=== PATIENT | male | born 1965 | race Caucasian/White ===

== ENCOUNTER → 2016-07-04 | Outpatient (CLI) | payer BC ==
[2016-07-04 12:14] LABS: CHLORIDE,CL 110 mmol/L (98-110); SODIUM,NA 140 mmol/L (136-146)
== END ==
LOC: MW.CHORTHO 11:25
PROVIDERS: ATTEND Physician Assistant
DX: Z51.81 Encounter for therapeutic drug level monitoring (principal); Z79.1 Long term (current) use of non-steroidal anti-inflammatories (NSAID)
CPT/HCPCS: 36415; 80048

== ENCOUNTER 2016-09-30 18:23 | Emergency (ER) | payer BC ==
--- NOTE | 2016-09-30 18:57 | EDM.PDOC ---
ED HPI GENERAL MEDICAL PROBLEM - General Chief Complaint: Lower Extremity Injury/Pain Stated Complaint: PT HAS INFECTION ON RT LEG Time Seen by Provider: 09/30/16 18:25 Source of Information: Reports: Patient History Limitations: Reports: No Limitations - History of Present Illness INITIAL COMMENTS - FREE TEXT/NARRATIVE: History of present illness: As 51-year-old male comes in complaining of pain to the right knee. Patient indicates that he had drained 40 mL of fluid off of it yesterday it is swollen and painful again today Review of systems: As per history of present illness and below otherwise all systems reviewed and negative. Past medical history: As per history of present illness and as reviewed below otherwise noncontributory. Surgical history: As per history of present illness and as reviewed below otherwise noncontributory. Social history: No reported history of drug or alcohol abuse. Family history: As per history of present illness and as reviewed below otherwise noncontributory. Physical exam: HEENT: Atraumatic, normocephalic, pupils reactive, negative for conjunctival pallor or scleral icterus, mucous membranes moist, throat clear, neck supple, nontender, trachea midline. Lungs: Clear to auscultation, breath sounds equal bilaterally, chest nontender. Heart: S1S2, regular, negative for clicks, rubs, or JVD. Abdomen: Soft, nondistended, nontender. Negative for masses or hepatosplenomegaly. Negative for costovertebral tenderness. Pelvis: Stable nontender. Genitourinary: Deferred. Rectal: Deferred. Extremities: Right leg swollen with a with a swollen ballotable patella, negative for cords or calf pain. Neurovascular unremarkable. Neuro: Awake, alert, oriented. Cranial nerves II through XII unremarkable. Cerebellum unremarkable. Motor and sensory unremarkable throughout. Exam nonfocal. Of note patient is able to bend leg fully and bear weight denies any difficulty with either. Patient indicates that yesterday he and his drained 40 mL of clear yellow fluid off his knee and now it is back and swollen and somewhat painful. Dr. Ni drain 27.5 mils from the patient's right knee please see her procedure note. Diagnostics: [CBC, CMP, x-ray of right knee] Therapeutics: [] Impression: [Prepatellar bursitis/cellulitis] Plan: [Antibiotics follow-up with or without] Definitive disposition and diagnosis as appropriate pending reevaluation and review of above. right knee; right leg Pain Score (Numeric/FACES): 2 - Related Data Allergies Allergy/AdvReac Type Severity Reaction Status Date / Time celecoxib [From Celebrex] Allergy Stomach Verified 09/30/16 18:37 Upset Home Meds: Home Meds Ascorbic Acid [Vitamin C] 500 mg PO DAILY 08/18/14 [History] Gluc 2KCl/Chondr/Andria Hy/Hy Ac [Glucosamine & Chondroitin Cap] 1 tab PO DAILY [History] Magnesium 200 mg PO DAILY 08/18/14 [History] Multivitamin [Multivitamins] 1 tab PO DAILY 08/18/14 [History] [place]-3 Fatty Acids [Charlotte-3] 1,200 mg PO DAILY 08/18/14 [History] Omeprazole Magnesium [Prilosec Otc] 20 mg PO BID 08/18/14 [History] Acetaminophen/HYDROcodone [[place] 325-5 MG] 1 - 2 tab PO Q4H PRN #60 tablet 08/20 [Rx] Past Medical History - Past Health History Medical/Surgical History: Denies Medical/Surgical History HEENT History: Reports: Impaired Vision Other HEENT History: wears glasses Musculoskeletal History: Reports: Arthritis Social & Family History - Family History Family Medical History: Noncontributory - Tobacco Use Smoking Status *Q: Never Smoker - Alcohol Use Days Per Week of Alcohol Use: 1 - Recreational Drug Use Recreational Drug Use: No Drug Use in Last 12 Months: No Review of Systems - Review of Systems Review Of Systems: See Below (History of present illness) ED EXAM, GENERAL - Physical Exam Exam: See Below (See history of present illness) Course - Vital Signs Last Recorded V/S: Last Vital Signs Temp 36.8 C 09/30/16 19:31 Pulse 68 09/30/16 19:31 Resp 18 09/30/16 19:31 BP 130/82 09/30/16 19:31 Pulse Ox 96 09/30/16 19:31 - Orders/Labs/Meds Orders: Active Orders 24 hr Category Date Time Status Knee 3V Rt [CR] Stat Exams 09/30/16 18:56 Taken CMP [COMPREHENSIVE METABOLIC PN,CMP] [CHEM] Stat Lab 09/30/16 19:36 Received CULTURE BLOOD [BC] Stat Lab 09/30/16 19:20 Received CULTURE BLOOD [BC] Stat Lab 09/30/16 19:36 Received Sodium Chloride 0.9% [Saline Flush] Med 09/30/16 19:11 Active 10 ml FLUSH ASDIRECTED PRN Sodium Chloride 0.9% [Saline Flush] Med 09/30/16 19:11 Active 2.5 ml FLUSH ASDIRECTED PRN Blood Culture x2 Reflex Set [OM.PC] Stat Oth 09/30/16 19:11 Ordered Saline Lock Insert [OM.PC] Stat Ot 09/30/16 19:11 Ordered Medication Orders Sodium Chloride (Saline Flush) 10 ml FLUSH ASDIRECTED PRN PRN Reason: Keep Vein Open Sodium Chloride (Saline Flush) 2.5 ml FLUSH ASDIRECTED PRN PRN Reason: Keep Vein Open Labs: Laboratory Tests 09/30/16 09/30/16 Range/Units 19:36 19:36 WBC 7.02 (4.0-11.0) K/uL RBC 4.24 L (4.50-5.90) M/uL Hgb 13.3 (13.0-17.0) g/dL Hct 38.7 (38.0-50.0) % MCV 91.3 (80.0-98.0) fL MCH 31.4 (27.0-32.0) pg MCHC 34.4 (31.0-37.0) g/dL RDW Std Deviation 45.1 (28.0-62.0) fl RDW Coeff of Sho 14 (11.0-15.0) % Plt Count 196 (150-400) K/uL MPV 9.90 (7.40-12.00) fL Neut % (Auto) 59.1 (48.0-80.0) % Lymph % (Auto) 28.2 (16.0-40.0) % [place] % (Auto) 9.7 (0.0-15.0) % Eos % (Auto) 2.6 (0.0-7.0) % Baso % (Auto) 0.4 (0.0-1.5) % Neut # (Auto) 4.2 (1.4-5.7) K/uL Lymph # (Auto) 2.0 (0.6-2.4) K/uL [place] # (Auto) 0.7 (0.0-0.8) K/uL Eos # (Auto) 0.2 (0.0-0.7) K/uL Baso # (Auto) 0.0 (0.0-0.1) K/uL Nucleated RBC % 0.0 /100WBC Nucleated RBCs # 0 K/uL Lactate 0.8 (0.20-2.00) mmol/L Meds: Medications Generic Name Dose Route Start Last Admin Trade Name Freq PRN Reason Stop Dose Admin Sodium Chloride 10 ml 09/30/16 19:11 Saline Flush FLUSH ASDIRECTED PRN Keep Vein Open Sodium Chloride 2.5 ml 09/30/16 19:11 Saline Flush FLUSH ASDIRECTED PRN Keep Vein Open Discontinued Medications Generic Name Dose Route Start Last Admin Trade Name Freq PRN Reason Stop Dose Admin Ketorolac Tromethamine 30 mg 09/30/16 19:12 09/30/16 19:30 Toradol IVPUSH 09/30/16 19:13 30 mg ONETIME ONE Administration Departure - Departure Time of Disposition: 21:18 Disposition: Home, Self-Care 01 Condition: Good Clinical Impression: Patellar bursitis of right knee, Cellulitis - Discharge Information Forms: ED Department Discharge Additional Instructions: The following information is given to patients seen in the emergency department who are being discharged to home. This information is to outline your options for follow-up care. We provide all patients seen in our emergency department with a follow-up referral. The need for follow-up, as well as the timing and circumstances, are variable depending upon the specifics of your emergency department visit. If you don't have a primary care physician on staff, we will provide you with a referral. We always advise you to contact your personal physician following an emergency department visit to inform them of the circumstance of the visit and for follow-up with them and/or the need for any referrals to a consulting specialist. The emergency department will also refer you to a specialist when appropriate. This referral assures that you have the opportunity for follow-up care with a specialist. All of these measure are taken in an effort to provide you with optimal care, which includes your follow-up. Under all circumstances we always encourage you to contact your private physician who remains a resource for coordinating your care. When calling for follow-up care, please make the office aware that this follow-up is from your recent emergency room visit. If for any reason you are refused follow-up, please contact the [facility] Emergency Department at and asked to speak to the emergency department charge nurse. Keep leg elevated as much as possible Take medication as directed Follow-up with primary care in 1-2 days Follow up with Ortho as instructed [facility] [address] [place] [id number] [facility] Professional [facility] [address] [place] [address], [address] [place] [address] - My Orders Last 24 Hours: My Active Orders 09/30/16 18:56 Knee 3V Rt [CR] Stat 09/30/16 19:36 CMP [COMPREHENSIVE METABOLIC PN,CMP] [CHEM] Stat - Assessment/Plan Last 24 Hours: My Active Orders 09/30/16 18:56 Knee 3V Rt [CR] Stat 09/30/16 19:36 CMP [COMPREHENSIVE METABOLIC PN,CMP] [CHEM] Stat
[2016-09-30] MEDS ORDERED: Sodium Chloride 0.9% 10 ML Syringe FLUSH PRN (19:11)
[2016-09-30] MEDS ORDERED: Sodium Chloride 0.9% 2.5 ML Syringe FLUSH PRN (19:11)
[2016-09-30] MEDS ORDERED: Ketorolac 30 MG/ML SDV IVPUSH ONE (19:12)
--- NOTE | 2016-09-30 20:01 | PCM.SN ---
- Free Text/Narrative Note: This is Dr. Ni dictating an addendum note as a supervising physician on this case. I agree with history and physical as above and according to my independent evaluation of this patient he does not perform work on a regular basis on his hands and knees but yesterday he was working in his boat cleaning it and was on his hands and knees and may have triggered the swelling due to that. The patient denies any systemic complaints and he denies any bony complaints to the knee. As documented in the nurse practitioner's note the patient and did attempt to withdraw fluid from the knee and states that they went just below the kneecap and line and were able to get 35-40 mL of fluid. After doing that procedure at home they did notice that the area became more swollen and more pinkish red in color as well as warm. The patient also states that since yesterday he has noticed more swelling distally in his legs but has no neurovascular changes in the leg. Labs and x-ray were performed and reviewed by me. A CRP and sedimentation rate was added to the labs. 2012: Case was discussed with orthopedics at [facility], Dr. Love. He agrees that this is likely not a septic joint but a prepatellar bursitis that has become infected due to the patient's manipulation. He recommends that I superficially tap the fluid in the prepatellar bursa and send that for study and give the patient 1 dose of vancomycin and send him home on Bactrim. As the patient is able to bend the knee and weight-bear he felt the likelihood of septic joint is low. The patient is aware of this conversation as is his and will proceed to consent him for a fluid tap of this bursa. Procedure note: After the patient was consented for the procedure and risk and benefits were discussed a timeout was taken. The area was surgically scrubbed and prepped with Betadine and alcohol and draped in sterile fashion. 1% lidocaine with epinephrine was infused in the skin in the prepatellar area and an 18-gauge needle was utilized to superficially access the pre-patella bursa. Yellow clear fluid was obtained for total of 27.5 mL. There were no complications and the joint space was not at all dilated. A dressing was applied and an Marcelino was placed. The patient tolerated the procedure well. He is currently finishing his vancomycin. I sent the body fluid for cell count and differential, Gram stain and culture, and crystals. I will follow-up those results as they become available but will not hold the patient for those results as the care plan will not change. The patient was advised to leave the Marcelino bandage on for the next 1-2 hours and then remove prior to going to sleep. I've advised him to try to rest the leg and not stress the knee. He will be given a prescription for Bactrim DS and has been strictly advised that if he cannot weight-bear he is unable to bend his knee he has a fever or the area that has been marked on his leg redness expands or the fluid re-accumulates he needs to return for rapid reevaluation in the ED. He will be given information to follow-up with our orthopedics clinic. Diagnosis: Right prepatellar bursitis with cellulitis.
[2016-09-30 20:10] LABS: CHLORIDE,CL 110 mmol/L (98-110); SODIUM,NA 138 mmol/L (136-146)
[2016-09-30] MEDS ORDERED: Lidocaine 1% with EPINEPHrine 1:100,000 20 ML MDV INJECT ONE (20:22)
[2016-09-30 21:45] VITALS: BP 96/58
--- NOTE | 2016-10-03 09:55 | CR ---
EXAM DATE: 09/30/16 PATIENT'S AGE: 51 Patient: AMAURI DEVRIES Facility: [place], [place] Site . Site : [id number] Study: XRay Knee Right [id number] 7:53:10 PM Ordering Physician: Doctor Max Final Report: Indication: Pain and swelling for 3 days. No known injury. Technique: Right knee three views. Comparison: June 24, 2014. Findings: No acute fracture or dislocation. Mild to moderate tricompartmental degenerative changes most pronounced in the medial compartment have slightly progressed. No additional osseous abnormality. Question prepatellar soft tissue swelling. Impression: No acute osseous abnormality. Mild to moderate degenerative changes most pronounced in the medial compartment. Question prepatellar soft tissue swelling. Dictated by Shaggy Paula MD @ 09/30/2016 8:00:46 PM Dictated by: Shaggy Paula MD @ 09/30/2016 20:01:09 (Electronic Signature) Report Signed by Proxy. THELMA
== END 2016-09-30 21:39 | disposition home or self-care (01) ==
LOC: MW.ED 18:23
DX: M70.41 Prepatellar bursitis, right knee (principal); L03.115 Cellulitis of right lower limb; M19.90 Unspecified osteoarthritis, unspecified site; Z79.899 Other long term (current) drug therapy; Z88.8 Allergy status to other drugs, medicaments and biological substances; Y93.89 Activity, other specified
CPT/HCPCS: 20610; 36415; 73562; 80053; 83605; 85025; 85652; 86140; 87040; 87070; 87205; 89050; 89060; 96365; 96375; 99284; J1885; J3370; J7050; 99282

== ENCOUNTER 2021-04-06 07:04 | Emergency (ER) | payer BC ==
[2021-04-06] MEDS ORDERED: Ondansetron 4 MG/2 ML SDV IVPUSH ONE (07:34)
[2021-04-06] MEDS ORDERED: fentaNYL 50 MCG/ML SDV IVPUSH ONE (07:34)
[2021-04-06] MEDS ORDERED: Ketorolac 30 MG/ML SDV IVPUSH ONE (07:34)
[2021-04-06] MEDS ORDERED: fentaNYL 100 MCG/2 ML SDV ONE (08:30)
[2021-04-06 09:30] LABS: BLOOD UREA NITROGEN,BUN 21 mg/dL (7.0-18.0); CARBON DIOXIDE,CO2 23.1 mmol/L (21.0-32.0); CHLORIDE,CL 103 mmol/L (98-107); GLUCOSE RANDOM 133 mg/dL (74-106); POTASSIUM,K 3.8 mmol/L (3.5-5.1); SODIUM,NA 138 mmol/L (136-148)
[2021-04-06 10:01] VITALS: BP 126/76; PULSE 67
== END 2021-04-06 10:00 | disposition home or self-care (01) ==
LOC: MW.ED 07:04
DX: S82.852A Displaced trimalleolar fracture of left lower leg, initial encounter for closed fracture (principal); Z88.8 Allergy status to other drugs, medicaments and biological substances; Z79.899 Other long term (current) drug therapy; W00.9XXA Unspecified fall due to ice and snow, initial encounter
CPT/HCPCS: 27818; 36415; 73600; 73610; 80048; 85025; 96374; 96375; 99284; J1885; J2405; J3010

== ENCOUNTER 2021-04-14 11:04 | Day surgery (SDC) | payer OTHER, BC ==
[~2021-04-14 11:04] MED LIST: Lactated Ringers 1,000 ML IV SCH; ceFAZolin 2 GM in Premix Bag 1 BAG IV SCH
[2021-04-14] MEDS ORDERED: fentaNYL 100 MCG/2 ML SDV IVPUSH PRN (12:05)
[2021-04-14] MEDS ORDERED: Ondansetron 4 MG/2 ML SDV IVPUSH PRN (12:05)
[2021-04-14] MEDS ORDERED: Naloxone 0.4 MG/ML SDV IVPUSH PRN (12:05)
[2021-04-14] MEDS ORDERED: HYDROmorphone 1 MG/ML Syringe IVPUSH PRN (12:05)
[2021-04-14] MEDS ORDERED: Albuterol 0.083% 2.5 MG/3 ML Neb Soln NEB PRN (12:05)
[2021-04-14] MEDS ORDERED: Metoclopramide 10 MG/2 ML SDV IVPUSH PRN (12:05)
[2021-04-14] MEDS ORDERED: Ropivacaine 0.5% 5 MG/ML 30 ML SDV ONE (12:12)
[2021-04-14] MEDS ORDERED: Midazolam 1 MG/ML 2 ML SDV ONE (12:50)
[2021-04-14] MEDS ORDERED: fentaNYL 100 MCG/2 ML SDV ONE ×2 (12:50→16:45)
[2021-04-14] MEDS ORDERED: Bupivacaine 25%/EPINEPHrine/PF 30 ML ONE (13:41)
[2021-04-14] MEDS ORDERED: Propofol 200 MG/20 ML SDV ONE (14:32)
[2021-04-14] MEDS ORDERED: Lidocaine 2% 5 ML SDV ONE (14:32)
[2021-04-14] MEDS ORDERED: ceFAZolin 1 GM Vial ONE (15:25)
[2021-04-14] MEDS ORDERED: Acetaminophen 1,000 MG in Premix Bag 1 BAG IV ONE (17:16)
[2021-04-14 18:37] VITALS: BP 136/62; PULSE 68
== END 2021-04-14 18:30 | disposition home or self-care (01) ==
LOC: MW.SDS 11:04
PROVIDERS: ATTEND Orthopaedic Surgery
DX: S82.852A Displaced trimalleolar fracture of left lower leg, initial encounter for closed fracture (principal); S93.432A Sprain of tibiofibular ligament of left ankle, initial encounter; G47.33 Obstructive sleep apnea (adult) (pediatric); E66.9 Obesity, unspecified; Z68.39 Body mass index [BMI] 39.0-39.9, adult; Z79.899 Other long term (current) drug therapy; Z88.8 Allergy status to other drugs, medicaments and biological substances; Z98.890 Other specified postprocedural states; Z87.891 Personal history of nicotine dependence
CPT/HCPCS: 27822; 27829; C1713; J0131; J0330; J0690; J2250; J2704; J2795; J3010; J7120; 01480; 64450; 76942

== ENCOUNTER 2022-04-06 08:55 | Day surgery (SDC) | payer BC, OTHER ==
[~2022-04-06 08:55] MED LIST changes: +Acetaminophen 1,000 MG in Premix Bag 1 BAG IV SCH; +Albuterol 0.083% 2.5 MG/3 ML Neb Soln NEB PRN; +HYDROmorphone 1 MG/ML Syringe IVPUSH PRN; +Metoclopramide 10 MG/2 ML SDV IVPUSH PRN; +Morphine 2 MG/ML SYRINGE IVPUSH PRN; +Naloxone 0.4 MG/ML SDV IVPUSH PRN; +Ondansetron 4 MG/2 ML SDV IVPUSH PRN; +Pregabalin 75 MG Cap PO SCH; -ceFAZolin 2 GM in Premix Bag 1 BAG IV SCH; +cefOXitin 2 GM in Premix Bag 1 BAG IV SCH; +fentaNYL 50 MCG/ML SDV IVPUSH PRN
[2022-04-06] MEDS ORDERED: Scopolamine 1.5 MG Transdermal Patch TOP ONE (09:00)
[2022-04-06] MEDS ORDERED: Rocuronium Bromide 50 MG/5 ML Syringe ONE ×2 (10:08→11:12)
[2022-04-06] MEDS ORDERED: Sugammadex Sodium 200 MG/2 ML VIAL ONE (10:08)
[2022-04-06] MEDS ORDERED: Ondansetron 4 MG/2 ML SDV ONE (10:08)
[2022-04-06] MEDS ORDERED: Lidocaine 2% 5 ML SDV ONE ×2 (10:08→10:11)
[2022-04-06] MEDS ORDERED: Dexamethasone 4 MG/ML 5 ML MDV ONE (10:08)
[2022-04-06] MEDS ORDERED: Ketorolac 30 MG/ML SDV ONE (10:08)
[2022-04-06] MEDS ORDERED: Propofol 200 MG/20 ML SDV ONE (10:08)
[2022-04-06] MEDS ORDERED: fentaNYL 100 MCG/2 ML SDV ONE (10:08)
[2022-04-06] MEDS ORDERED: Bupivacaine 0.25%/EPINEPHrine 1:200,000 10 ML SDV ONE ×2 (10:13→10:14)
[2022-04-06] MEDS ORDERED: Ropivacaine 0.5% 5 MG/ML 30 ML SDV ONE (10:13)
[2022-04-06] MEDS ORDERED: Dexmedetomidine 200 MCG/2 ML SDV ONE (10:18)
[2022-04-06] MEDS ORDERED: Bupivacaine 0.25% 30 ML SDV ONE (10:28)
[2022-04-06] MEDS ORDERED: HYDROmorphone 2 MG/ML Syringe ONE (12:07)
[2022-04-06 14:19] VITALS: BP 106/70; PULSE 77
== END 2022-04-06 14:24 | disposition home or self-care (01) ==
LOC: MW.SDS 08:55
PROVIDERS: ATTEND Surgery
DX: K80.10 Calculus of gallbladder with chronic cholecystitis without obstruction (principal); K80.50 Calculus of bile duct without cholangitis or cholecystitis without obstruction; M19.90 Unspecified osteoarthritis, unspecified site; K21.9 Gastro-esophageal reflux disease without esophagitis; G43.909 Migraine, unspecified, not intractable, without status migrainosus; E66.9 Obesity, unspecified; G47.30 Sleep apnea, unspecified; Z98.890 Other specified postprocedural states; Z87.891 Personal history of nicotine dependence; Z88.6 Allergy status to analgesic agent; Z86.16 Personal history of COVID-19; Z68.41 Body mass index [BMI] 40.0-44.9, adult
CPT/HCPCS: 47562; A9270; J0131; J1100; J1170; J1885; J2405; J2704; J2795; J3010; J3490; J7030; J7120